=== PATIENT | female | born 1965 | race Caucasian/White ===

== ENCOUNTER 2021-04-12 15:28 | Emergency (ER) | payer MEDICAID ==
[~2021-04-12] VITALS: Ht 180.3 cm; Wt 95.2 kg
[2021-04-12] MEDS ORDERED: NAPROXEN500 MG PO (15:44)
[2021-04-12] MEDS ORDERED: COZAAR100 MG PO (15:45)
[2021-04-12] MEDS ORDERED: METHOCARBAMOL500 MG PO (16:06)
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
[2021-04-12] MEDS ORDERED: HYDROCODON-ACE1 EA11 PO (17:17)
== END 2021-04-12 17:26 | disposition home or self-care (01) ==
LOC: ED 15:28
DX: S20.212A Contusion of left front wall of thorax, initial encounter (principal); I10 Essential (primary) hypertension; V49.9XXA Car occupant (driver) (passenger) injured in unspecified traffic accident, initial encounter; Z79.899 Other long term (current) drug therapy
CPT/HCPCS: 71046; 99283-25; A9270

== ENCOUNTER 2022-09-01 04:48 | Emergency (ER) | payer MEDICAID ==
[~2022-09-01] VITALS: Ht 180.3 cm; Wt 88.5 kg
[~2022-09-01 04:48] MED LIST: COZAAR100 MG PO; HYDROCODON-ACE1 EA11 PO; METHOCARBAMOL500 MG PO; NAPROXEN500 MG PO
== END 2022-09-01 05:43 | disposition home or self-care (01) ==
LOC: ED 04:48
DX: T15.02XA Foreign body in cornea, left eye, initial encounter (principal); I10 Essential (primary) hypertension; Z79.899 Other long term (current) drug therapy; X58.XXXA Exposure to other specified factors, initial encounter
CPT/HCPCS: 99283